=== PATIENT | female | born 1995 | race Two or more races ===

== ENCOUNTER 2022-11-13 12:30 | Emergency (ER) | payer BC, MEDICAID ==
[~2022-11-13] VITALS: Ht 157.5 cm; Wt 55.0 kg
[2022-11-13 12:52] VITALS: BP 115/65
[2022-11-13] MEDS ORDERED: DexAMETHasone SOD PHOS 10MG/1ML VIAL INJ IM ONE (17:15)
[2022-11-13] MEDS ORDERED: AUG875T PO (17:27)
[2022-11-13] MEDS ORDERED: PRED20TA2 PO (17:27)
== END 2022-11-13 17:55 | disposition home or self-care (01) ==
LOC: ER 12:30
DX: J03.90 Acute tonsillitis, unspecified (principal); E04.1 Nontoxic single thyroid nodule; E06.9 Thyroiditis, unspecified
CPT/HCPCS: 36415; 76536; 84439; 84443; 96372; 99285; J1100

== ENCOUNTER 2023-07-14 16:20 | Emergency (ER) | payer MEDICAID ==
[~2023-07-14] VITALS: Ht 152.4 cm; Wt 62.7 kg
[~2023-07-14 16:20] MED LIST: AUG875T PO; PRED20TA2 PO
[2023-07-14 17:05] VITALS: BP 109/58; PULSE 70; RESP 16; TEMP 98.3; O2SAT 99
[2023-07-14] MEDS ORDERED: cefTRIAXone SOD 1,000 MG VL IM ONE (17:15)
[2023-07-14] MEDS ORDERED: AZIT-81 PO (17:22)
[2023-07-14] MEDS ORDERED: LIDO2SOL26 MT (17:22)
[2023-07-14 18:16] LABS: COVID19 ANTIGEN SOFIA FIA NEGATIVE (NEGATIVE)
== END 2023-07-14 17:31 | disposition home or self-care (01) ==
LOC: ER 16:20
DX: J02.9 Acute pharyngitis, unspecified (principal); F17.210 Nicotine dependence, cigarettes, uncomplicated; Z20.822 Contact with and (suspected) exposure to COVID-19
CPT/HCPCS: 36415; 87426; 96372; 99283; J0696